=== PATIENT | male | born 1985 | race Caucasian/White ===

== ENCOUNTER 2018-06-16 17:50 | Emergency (ER) | payer OTHER ==
[~2018-06-16] VITALS: Ht 188 cm; Wt 64.9 kg
[2018-06-16 17:58] VITALS: Ht 188 cm; Wt 64.9 kg
[2018-06-16 18:36] LABS: BASOPHIL % 0.5 % (0-2); PLATELET COUNT 246 x10^3mcL (130-400)
[2018-06-16 18:51] LABS: CALCIUM 8.7 mg/dL (8.5-10.1); CARBON DIOXIDE 28.2 mmol/L (21-32); CHLORIDE SERUM 98 mmol/L (98-107); GFR1 > 60 mL/min; GLUCOSE SERUM 93 mg/dL (74-106); POTASSIUM SERUM 4.4 mmol/L (3.5-5.1); SODIUM SERUM 135 mmol/L (136-145)
[2018-06-16 18:55] LABS: RED CELL DISTRIBUTION WIDTH 14.9 % (11.5-14.5)
[2018-06-16 18:57] LABS: ALBUMIN 3.7 g/dL (3.4-5.0); ALKALINE PHOSPHATASE 102 U/L (46-116); ALT/SGPT 33 U/L (16-63); AST/SGOT 10 U/L (15-37); BILIRUBIN TOTAL 0.3 mg/dL (0.20-1.00); TOTAL PROTEIN, SERUM 6.3 g/dL (6.4-8.2)
[2018-06-16 21:57] VITALS: BP 104/51
== END 2018-06-16 21:57 | disposition short-term general hospital (02) ==
LOC: ED 17:50
PROVIDERS: Emergency Medicine
DX: R56.9 Unspecified convulsions (principal)
CPT/HCPCS: J7030

== ENCOUNTER 2019-02-04 19:38 | Emergency (ER) | payer OTHER ==
[~2019-02-04] VITALS: Ht 188 cm; Wt 73.5 kg
[2019-02-04 20:13] VITALS: Ht 188 cm; Wt 73.5 kg
[2019-02-04 20:56] VITALS: BP 106/79
== END 2019-02-04 20:56 | disposition home or self-care (01) ==
LOC: ED 19:38
DX: Z76.0 Encounter for issue of repeat prescription (principal)